=== PATIENT | male | born 1960 | race Caucasian/White ===

== ENCOUNTER 2024-08-15 10:03 | Outpatient (OUT) | payer MEDICAID, SELFPAY ==
--- NOTE | 2024-08-15 | XR_ITS ---
The [address] [address] Patient Name: LICHA COLUNGA MRN: [id number] date: 1960 Sex: M Assigned Patient Location: Current Patient Location: Accession/Order Number: [id number] Exam Date: 08/15/2024 10:25 Report Date: 08/16/2024 06:40 At the request of: ELIOT CAMACHO Procedure: XR knee RT 4V PROCEDURE: XR knee RT 4V HISTORY: RIGHT KNEE PAIN COMPARISON: None. FINDINGS: BONES:Marked narrowing of the medial joint space with near [id number] articulation. Mild narrowing of the anterior compartment. Small periarticular degenerative osteophytes along the margins of the patella. Small separate corticated ossifications adjacent the intercondylar spines, lateral margin of the lateral tibial plateau, and at anterior margin of tibial plateau. SOFT TISSUES:No visible soft tissue swelling. EFFUSION:Small joint effusion. OTHER: Negative. XR/XR knee RT 4V IMPRESSION: 1. Marked degenerative joint disease predominantly involving the medial compartment. Electronically authenticated by: ELIOT LITTLEJOHN Date: 08/16/2024 06:40
== END 2024-08-15 10:04 | disposition home or self-care (01) ==
PROVIDERS: PCP Internal Medicine; Visit Provider Orthopaedic Surgery
DX: M25.561 Pain in right knee (principal); M17.11 Unilateral primary osteoarthritis, right knee
CPT/HCPCS: 73564